=== PATIENT | male | born 1995 | race Caucasian/White ===

== ENCOUNTER 2016-05-11 16:16 | Emergency (ER) | payer SELFPAY ==
--- NOTE | 2016-05-11 17:26 | UC ---
General HPI - HPI Summary HPI Summary: 20 y/o male c/o 10/10 frontal, ethmoid, and maxillary sinus pressure and congestion, rhinitis with yellow-green mucus, post-nasal drip and bilateral muffled sounds x 5-7 days. Denies fever, cough, or sore throat. - History of Current Complaint Chief Complaint: UCGeneralIllness Stated Complaint: SINUS,COUGH COMPLAINT Time Seen by Provider: 05/11/16 17:14 Hx Obtained From: Patient Onset/Duration: Gradual Onset Timing: Constant Onset Severity: Moderate Current Severity: Severe Pain Intensity: 8 Pain Location at: frontal, ethmoid, and maxillary sinus pressure and congestion Associated Signs & Symptoms: Positive: Headache. Negative: Nausea, SOB, Wheezing - Allergy/Home Medications Allergies/Adverse Reactions: Allergies Allergy/AdvReac Type Severity Reaction Status Date / Time No Known Allergies Allergy Verified 05/11/16 17:07 Home Medications: Home Medications Ascorbic Acid TAB* [Vitamin C TAB*] 1,000 mg PO DAILY 05/11/16 [History Confirmed 05/11/16] Pseudoephedrine-Guaifenesin [Mucinex D 60-600 mg] 2 tab PO DAILY PRN 05/11/16 [ History Confirmed 05/11/16] PMH/Surg Hx/FS Hx/Imm Hx Previously Healthy: Yes Endocrine History Of: Denies: Diabetes, Thyroid Disease, Hyperthyroidism, Hypothyroidism, Dyslipidemia Cardiovascular History Of: Denies: Congestive Heart Failure Respiratory History Of: Denies: Asthma GI/ History Of: Denies: Gastroesophageal Reflux Neurological History Of: Reports: Migraine Denies: Seizures Psychological History Of: Denies: Anxiety, Depression - Surgical History Surgical History: None - Family History Known Family History: Positive: None - Social History Occupation: Employed Full-time Lives: Alone Alcohol Use: Occasionally Substance Use Type: None Smoking Status (MU): Never Smoked Tobacco Have You Smoked in the Last Year: No - Immunization History Most Recent Influenza Vaccination: NONE Most Recent Tetanus Shot: UNKNOWN Hx Tetanus, Diphtheria Vaccination: No Vaccination Up to Date: Yes Review of Systems Constitutional: Fatigue Skin: Negative Eyes: Negative ENT: Ear Ache, Nasal Discharge Respiratory: Negative Cardiovascular: Negative Gastrointestinal: Negative Genitourinary: Negative Motor: Negative Neurovascular: Negative Musculoskeletal: Negative Neurological: Negative Psychological: Negative All Other Systems Reviewed And Are Negative: Yes Physical Exam Triage Information Reviewed: Yes Appearance: Well-Appearing, Well-Nourished, Pain Distress Vital Signs: Initial Vital Signs Temp 98.6 F 05/11/16 17:00 Pulse 73 05/11/16 17:00 Resp 12 05/11/16 17:00 BP 132/65 05/11/16 17:00 Pulse Ox 100 05/11/16 17:00 Eye Exam: Normal Eyes: Positive: Conjunctiva Clear ENT: Positive: Nasal congestion, Nasal drainage, Other: - Swollen reddened nasal turbinates Unable to visualize TM r/t B/L cerumen impaction Dental: Positive: Percussion Tenderness @ - Maxillary sinus congestion. Negative: Abscess @, Cervical Lymphadenopathy Neck: Positive: Supple, Nontender, No Lymphadenopathy Respiratory: Positive: Chest non-tender, Lungs clear, Normal breath sounds, No respiratory distress, No accessory muscle use. Negative: Wheezing Cardiovascular: Positive: RRR, No Murmur, Pulses Normal, Brisk Capillary Refill Abdomen Description: Positive: Nontender, No Organomegaly, Soft Bowel Sounds: Positive: Present Musculoskeletal: Positive: Strength Intact, ROM Intact Neurological Exam: Normal Neurological: Positive: Alert, Muscle Tone Normal Psychological Exam: Normal Skin Exam: Normal Re-Evaluation - Re-Evaluation First Eval Change: Improved Comment: TM normal after ear flush Course/Dx - Differential Dx - Multi-Symptom Provider Diagnoses: Acute rhinosinusitis Discharge - Discharge Plan Condition: Stable Disposition: HOME Prescriptions: Amoxicillin/Clavulanate TAB* [Augmentin TAB 875*] 875 mg PO BID #10 tab Patient Education Materials: Rhinosinusitis (ED) Forms: *Work Release Referrals: Reid Leon [Primary Care Provider] - If Needed Additional Instructions: IF symptoms fail to improve after antibiotic completion, see primary care provider or return for further evaluation.
[2016-05-11] MEDS ORDERED: Amoxicillin/Clavulanate TAB* 875 MG PO ONE ×2 (17:53)
[2016-05-11 18:11] VITALS: BP 125/73
== END 2016-05-11 18:11 | disposition home or self-care (01) ==
LOC: UCCORT 16:16
DX: J01.90 Acute sinusitis, unspecified (principal)
CPT/HCPCS: 99213; A9270-GY; G0463